=== PATIENT | male | born 1960 | race Caucasian/White ===

== ENCOUNTER 2021-05-17 23:03 | Observation (INO) | payer OTHER ==
[2021-05-17] MEDS ORDERED: KETOROLAC TROMETHAMINE 30 MG/1 ML VIAL IM ONE (23:49)
[2021-05-17] MEDS ORDERED: KETOROLAC TROMETHAMINE 15 MG/ML VIAL IVPUSH ONE (23:50)
[2021-05-18] MEDS ORDERED: KETOROLAC TROMETHAMINE 15 MG/ML VIAL ONE (00:46)
[2021-05-18 01:02] LABS: HEMATOCRIT 43.5 % (35.4-49); HEMOGLOBIN 15.1 GM/dL (11.7-16.9); MCH 31.7 pg (25.7-33.7); MCHC 34.7 g/dl (32.0-35.9); MEAN CELL VOLUME 91.5 fl (80-96); MEAN PLT VOLUME 8.5 fl (7.5-11.1); PLATELET COUNT 165 10^3/uL (134-434); RBC 4.76 M/mm3 (4.00-5.60); RDW 13.1 % (11.9-15.9); WHITE BLOOD COUNT 14.6 K/mm3 (4.0-10.0)
[2021-05-18 01:18] LABS: ALBUMIN 3.8 g/dl (3.4-5.0); CALCIUM 8.8 mg/dL (8.5-10.1)
[2021-05-18 01:21] LABS: CREATININE 1.5 mg/dL (0.55-1.3)
[2021-05-18 01:22] LABS: BILIRUBIN,TOTAL 0.8 mg/dL (0.2-1)
[2021-05-18 01:23] LABS: TOT PROT 7.8 g/dl (6.4-8.2)
[2021-05-18] MEDS ORDERED: SODIUM CHLORIDE 1,000 ML IV STA (01:26)
[2021-05-18] MEDS ORDERED: INSULIN REGULAR HUMAN 100 UNITS/ML *VIAL SQ ONE (01:40)
[2021-05-18] MEDS ORDERED: SODIUM CHLORIDE 1,000 ML IV SCH ×2 (01:45→11:03)
[2021-05-18] MEDS ORDERED: INSULIN REGULAR HUMAN 100 UNITS/ML *VIAL ONE (01:50)
[2021-05-18 02:55] LABS: ANISOCYTOSIS 0; MACROCYTOSIS 0; PLATELET ESTIMATE NORMAL
[2021-05-18 05:28] LABS: EPI CELLS 2 /uL (0-25.1); HYALINE CASTS 1 /uL (0-3.1); URINE APPEARANCE TURBID; URINE BACTERIA 1 /uL (0-1359); URINE BILIRUBIN NEGATIVE (NEGATIVE); URINE COLOR YELLOW; URINE GLUCOSE (UA) 3+ (NEGATIVE); URINE KETONE 1+ (NEGATIVE); URINE LEUK ESTERASE NEGATIVE (NEGATIVE); URINE NITRITE NEGATIVE (NEGATIVE); URINE PROTEIN NEGATIVE (NEGATIVE); URINE UROBILINOGEN 0.2 mg/dL (0.2-1.0); URINE WBC 2 /uL (0-25.8)
[2021-05-18] MEDS ORDERED: ACETAMINOPHEN 1000 MG/100 ML VIAL IVPB PRN (09:38)
[2021-05-18 09:47] LABS: URINE RBC 46.3 /uL (0-23.9)
[2021-05-18] MEDS ORDERED: amLODIPine BESYLATE 10 MG TABLET (FP) PO SCH (10:00)
[2021-05-18] MEDS ORDERED: CEFTRIAXONE 1 GM in SODIUM CHLORIDE 50 ML IVPB SCH (10:00)
[2021-05-18] MEDS ORDERED: ASPIRIN 81 MG CHEWABLE TABLETS PO SCH (10:00)
[2021-05-18] MEDS ORDERED: RAMIPRIL 5 MG CAPSULE PO SCH (10:00)
[2021-05-18 10:27] VITALS: BMI 50.8
[2021-05-18] MEDS ORDERED: SODIUM CHLORIDE 50 ML IVPB ONE (10:50)
[2021-05-18] MEDS ORDERED: cefTRIAXone SODIUM 1 GM VIAL ONE (10:50)
[2021-05-18] MEDS: INSULIN (NOVOLOG) ASPART 100 UNITS/ML 10ML VIAL SQ SCH ×3 (11:05→22:20)
[2021-05-18] MEDS ORDERED: KETOROLAC TROMETHAMINE 15 MG/ML VIAL IVPUSH ONE (11:15)
[2021-05-18] MEDS ORDERED: KETOROLAC TROMETHAMINE 15 MG/ML VIAL IM ONE (21:53)
[2021-05-18] MEDS ORDERED: ATORVASTATIN CA 80 MG TABLET (FP) PO SCH (22:00)
[2021-05-19] MEDS ORDERED: SODIUM CHLORIDE 1,000 ML IV SCH ×2 (01:39→18:57)
[2021-05-19] MEDS ORDERED: ACETAMINOPHEN 1000 MG/100 ML VIAL IVPB PRN (01:39)
[2021-05-19] MEDS: INSULIN (NOVOLOG) ASPART 100 UNITS/ML 10ML VIAL SQ SCH ×3 (06:08→17:01)
[2021-05-19 08:11] LABS: BASO % 0.8 % (0-2.0); EOS % 0.9 % (0-4.5); HEMOGLOBIN 14.3 GM/dL (11.7-16.9); LYMPH % 12.2 % (8-40); MCH 31.7 pg (25.7-33.7); MCHC 34.9 g/dl (32.0-35.9); MEAN CELL VOLUME 90.9 fl (80-96); MEAN PLT VOLUME 8.8 fl (7.5-11.1); MONO % 5.5 % (3.8-10.2); NEUT % 80.6 % (42.8-82.8); PLATELET COUNT 178 10^3/uL (134-434); RBC 4.51 M/mm3 (4.00-5.60); RDW 13.5 % (11.9-15.9); WHITE BLOOD COUNT 9.9 K/mm3 (4.0-10.0)
[2021-05-19 08:34] LABS: BLOOD UREA NITROGEN 20.3 mg/dL (7-18); CALCIUM 8.4 mg/dL (8.5-10.1)
[2021-05-19 08:35] LABS: MAGNESIUM 1.8 mg/dL (1.8-2.4)
[2021-05-19 08:37] LABS: CREATININE 1.6 mg/dL (0.55-1.3)
[2021-05-19 08:39] LABS: BILIRUBIN,TOTAL 0.9 mg/dL (0.2-1); TOT PROT 6.6 g/dl (6.4-8.2)
[2021-05-19 08:52] LABS: ALBUMIN 2.9 g/dl (3.4-5.0)
[2021-05-19] MEDS ORDERED: cefTRIAXone SODIUM 1 GM VIAL ONE (08:52)
[2021-05-19] MEDS ORDERED: SODIUM CHLORIDE 50 ML IVPB ONE (08:52)
[2021-05-19] MEDS ORDERED: RAMIPRIL 5 MG CAPSULE PO SCH (10:00)
[2021-05-19] MEDS ORDERED: ASPIRIN 81 MG CHEWABLE TABLETS PO SCH (10:00)
[2021-05-19] MEDS ORDERED: CEFTRIAXONE 1 GM in SODIUM CHLORIDE 50 ML IVPB SCH (10:00)
[2021-05-19] MEDS ORDERED: amLODIPine BESYLATE 10 MG TABLET (FP) PO SCH (10:00)
[2021-05-19] MEDS ORDERED: ONDANSETRON 4 MG/2 ML VIAL IVPUSH PRN ×2 (14:44→18:57)
[2021-05-19] MEDS ORDERED: PROMETHAZINE HCL 25 MG/1 ML VIAL IVPUSH PRN ×2 (14:44→18:57)
[2021-05-19] MEDS ORDERED: LACTATED RINGERS SOLUTION 1,000 ML IV SCH ×2 (14:45→18:57)
[2021-05-19] MEDS ORDERED: MIDAZOLAM HCL 2 MG/2 ML SINGLE DOSE VIAL ONE ×2 (16:35)
[2021-05-19] MEDS ORDERED: ATORVASTATIN CA 80 MG TABLET (FP) PO SCH ×2 (22:00)
[2021-05-19] MEDS: INSULIN SLIDING SCALE (NOVOLOG) 1 VIAL SQ SCH (22:03)
[2021-05-19] MEDS ORDERED: KETOROLAC TROMETHAMINE 30 MG/1 ML VIAL IVPUSH ONE (22:14)
[2021-05-20] MEDS: INSULIN SLIDING SCALE (NOVOLOG) 1 VIAL SQ SCH ×2 (06:24→11:55)
[2021-05-20] MEDS ORDERED: RAMIPRIL 5 MG CAPSULE PO SCH (10:00)
[2021-05-20] MEDS ORDERED: CEFTRIAXONE 1 GM in SODIUM CHLORIDE 50 ML IVPB SCH (10:00)
[2021-05-20] MEDS ORDERED: ASPIRIN 81 MG CHEWABLE TABLETS PO SCH (10:00)
[2021-05-20] MEDS ORDERED: amLODIPine BESYLATE 10 MG TABLET (FP) PO SCH (10:00)
[2021-05-20 10:03] LABS: BASO % 0.9 % (0-2.0); EOS % 0.9 % (0-4.5); HEMOGLOBIN 13.6 GM/dL (11.7-16.9); LYMPH % 13.2 % (8-40); MCH 31.3 pg (25.7-33.7); MCHC 34.1 g/dl (32.0-35.9); MEAN PLT VOLUME 8.4 fl (7.5-11.1); PLATELET COUNT 177 10^3/uL (134-434); RBC 4.35 M/mm3 (4.00-5.60); RDW 13.4 % (11.9-15.9); WHITE BLOOD COUNT 8.3 K/mm3 (4.0-10.0)
[2021-05-20] MEDS ORDERED: SODIUM CHLORIDE 50 ML IVPB ONE (10:05)
[2021-05-20] MEDS ORDERED: cefTRIAXone SODIUM 1 GM VIAL ONE (10:05)
[2021-05-20 10:28] LABS: ALBUMIN 2.8 g/dl (3.4-5.0); CALCIUM 8.3 mg/dL (8.5-10.1)
[2021-05-20 10:29] LABS: BLOOD UREA NITROGEN 15.6 mg/dL (7-18); MAGNESIUM 1.8 mg/dL (1.8-2.4)
[2021-05-20 10:32] LABS: CREATININE 1.1 mg/dL (0.55-1.3)
[2021-05-20 10:33] LABS: BILIRUBIN,TOTAL 0.8 mg/dL (0.2-1); TOT PROT 6.4 g/dl (6.4-8.2)
[2021-05-20 14:16] VITALS: BP 138/81; PULSE 74; TEMP 98.6
== END 2021-05-20 16:22 | disposition home or self-care (01) ==
LOC: EDBD → FER 23:03 → FM/S 05-18 01:35 → INTOOBSV 05-18 01:35 → UNDOADMOB 05-18 01:35 → FM/S 05-18 12:27 → J4S 05-19 01:40
PROVIDERS: ADMIT Internal Medicine; ATTEND Nurse Practitioner Acute Care
PROC: 3E033NZ Introduction of Analgesics, Hypnotics, Sedatives into Peripheral Vein, Percutaneous Approach (ICD-10-PCS; principal; 2021-05-18)
PROC: 3E03329 Introduction of Other Anti-infective into Peripheral Vein, Percutaneous Approach (ICD-10-PCS; 2021-05-18)
PROC: 3E013VG Introduction of Insulin into Subcutaneous Tissue, Percutaneous Approach (ICD-10-PCS; 2021-05-18)
PROC: 3E0333Z Introduction of Anti-inflammatory into Peripheral Vein, Percutaneous Approach (ICD-10-PCS; 2021-05-18)
PROC: 3E0337Z Introduction of Electrolytic and Water Balance Substance into Peripheral Vein, Percutaneous Approach (ICD-10-PCS; 2021-05-18)
PROC: 0TC78ZZ Extirpation of Matter from Left Ureter, Via Natural or Artificial Opening Endoscopic (ICD-10-PCS; 2021-05-18)
PROC: 0T778DZ Dilation of Left Ureter with Intraluminal Device, Via Natural or Artificial Opening Endoscopic (ICD-10-PCS; 2021-05-18)
DX: N13.1 Hydronephrosis with ureteral stricture, not elsewhere classified (principal); N17.9 Acute kidney failure, unspecified; I10 Essential (primary) hypertension; E11.9 Type 2 diabetes mellitus without complications; E78.5 Hyperlipidemia, unspecified; E66.01 Morbid (severe) obesity due to excess calories; Z68.43 Body mass index [BMI] 50.0-59.9, adult; Z95.1 Presence of aortocoronary bypass graft; N23 Unspecified renal colic; B02.9 Zoster without complications; Z29.9 Encounter for prophylactic measures, unspecified
CPT/HCPCS: 36415; 74176-TC; 76000-TC-FY; 80053; 81003; 82962; 83735; 85025; 93005; 94760; 99285-25; C9803; G0378; J0131; U0003; U0005

== ENCOUNTER 2021-10-04 04:17 | Day surgery (SDC) | payer OTHER ==
[2021-08-05 08:39] VITALS: BMI 44.3
[2021-10-04] MEDS ORDERED: MIDAZOLAM HCL 2 MG/2 ML SINGLE DOSE VIAL ONE (09:23)
[2021-10-04] MEDS ORDERED: LIDOCAINE HCL/PF 2% SDV 5ML VIAL ONE (09:24)
[2021-10-04] MEDS ORDERED: KETAMINE HCL 200 MG/20 ML VIAL ONE (09:26)
[2021-10-04] MEDS ORDERED: GLYCOPYRROLATE 0.2 MG/1 ML VIAL ONE (09:46)
[2021-10-04 11:03] VITALS: BP 112/68; PULSE 74; TEMP 98.4
== END 2021-10-04 11:43 | disposition home or self-care (01) ==
LOC: JASU-SURG 04:17
PROVIDERS: ATTEND Urology
PROC: 0TF4XZZ Fragmentation in Left Kidney Pelvis, External Approach (ICD-10-PCS; principal; 2021-10-04 09:00)
DX: N20.0 Calculus of kidney (principal)
CPT/HCPCS: 82962